=== PATIENT | male | born 1975 | race Caucasian/White ===

== ENCOUNTER 2024-04-02 12:48 | Emergency (ER) | payer OTHER, SELFPAY ==
[2024-04-02 12:55] VITALS: BP 117/75; PULSE 77; RESP 18; TEMP 36.3; O2SAT 99; BMI 21.6
--- NOTE | 2024-04-02 12:59 | DI.RAD.S_ITS ---
PROCEDURE: XR ELBOW RT MIN 3V INDICATIONS: Right elbow pain, wound TECHNIQUE: 3 views of the elbow were acquired. COMPARISON: None. FINDINGS: Bones: No fractures or dislocations. No suspicious bony lesions. Soft tissues: No elbow joint effusion. No suspicious soft tissue calcifications. IMPRESSION: No acute elbow fracture or dislocation. No significant joint effusion. Dictated by: Sherman Burnett M.D. on 04/02/2024 at 13:39 Approved by: Sherman Burnett M.D. on 04/02/2024 at 13:39
--- NOTE | 2024-04-02 14:06 | ED.UPPEXIN ---
HPI - Extremity Injury (Upper) <Isela Pollack PA-C - Last Filed: 04/02/24 14:27> General Chief Complaint: Extremity Injury, Upper Stated Complaint: fall/R elbow injury Time Seen by Provider: 04/02/24 13:16 Source: patient Mode of arrival: Ambulatory History of Present Illness HPI narrative: 48-year-old male presents to the ED with 2-3 weeks of right elbow pain. Patient states that he fell on ice 2-3 weeks ago, striking his right elbow. Patient states that he was feeling better, however over the last couple days, his right elbow has become swollen, tender to touch. No fever, chills. There is full range of motion. No numbness, tingling, weakness. Related Data Previous Rx's Medication Instructions Recorded sulfamethoxazole 800 2 tab PO Q12H 14 days #56 tabs 04/02/24 mg-trimethoprim 160 mg tablet (Bactrim DS) Allergies Allergy/AdvReac Type Severity Reaction Status Date / Time codeine AdvReac Vomiting Verified 04/02/24 12:55 Review of Systems <Isela Pollack PA-C - Last Filed: 04/02/24 14:27> Constitutional Constitutional: Denies chills, Denies fatigue, Denies fever(s), Denies frequent falls, Denies lethargy and Denies weakness Eyes Eyes: Denies change in vision, Denies eye discharge, Denies irritation and Denies loss of vision ENT Ears, Nose, Mouth, and Throat: Denies change in voice, Denies dizziness, Denies neck pain, Denies sore throat and Denies throat swelling Cardiovascular Cardiovascular: Denies chest pain, Denies irregular heart rhythm, Denies lightheadedness, Denies palpitations, Denies dyspnea, Denies dyspnea on exertion and Denies orthopnea Respiratory Respiratory: Denies cough, Denies dyspnea, Denies dyspnea on exertion and Denies wheezing Gastrointestinal Gastrointestinal: Denies abdominal pain, Denies change in bowel habits, Denies diarrhea, Denies nausea and Denies vomiting Musculoskeletal Musculoskeletal: Denies neck pain and Denies numbness Comments: Right elbow pain and swelling Integumentary/Breasts Skin/Breast: Denies pruritus, Denies erythema, Denies rash and Denies wounds Neurologic Neurologic: Denies behavioral changes, Denies confusion, Denies dizziness, Denies frequent falls, Denies loss of vision, Denies numbness and Denies weakness Psychiatric Psychiatric: Denies anxiety, Denies behavioral changes, Denies confusion, Denies depression, Denies homicidal ideation and Denies suicidal ideation Endocrine Endocrine: Denies fatigue, Denies flushing and Denies palpitations Hematologic/Lymphatic Hematologic/Lymphatic: Denies easy bruising Allergic/Immunologic Allergic/Immunologic: Denies urticaria, Denies throat swelling and Denies wheezing Patient History <Isela Pollack PA-C - Last Filed: 04/02/24 14:27> Social History Smoking Status: Current every day smoker Smoking Status: Current every day smoker Exam <Isela Pollack PA-C - Last Filed: 04/02/24 14:27> Narrative Exam Narrative: Const General:?cooperative, healthy appearing and comfortable HENTX Head:?normal to inspection Ears:?hearing grossly normal bilaterally Nose:?external nose normal Face and sinus:?normal facial exam and sinuses nontender Mouth:?oral mucosae normal Throat:?posterior oropharynx normal Eyes General:?appearance normal, both eyes and all related structures Neck Neck:?normal visual inspection and no lymphadenopathy noted Resp Effort & Inspection:?normal respiratory effort Auscultation:?clear to auscultation bilaterally Cardio Rate:?regular rate Rhythm:?regular rhythm Musculoskeletal There is swelling, tenderness to the right olecranon region. Colored tattoos make it difficult to gauge erythema. Slightly warm to touch. There is full range of motion. Patient is neurovascularly intact. Neuro General:?patient alert, patient awake and patient oriented x3 Initial Vital Signs Initial Vital Signs: Vital Signs Temperature 97.4 F L 04/02/24 12:55 Pulse Rate 77 04/02/24 12:55 Respiratory Rate 18 04/02/24 12:55 Blood Pressure 117/75 04/02/24 12:55 Pulse Oximetry 99 04/02/24 12:55 Oxygen Delivery Method Room Air 04/02/24 12:55 <Abby Salamanca DO - Last Filed: 04/03/24 19:13> Initial Vital Signs Initial Vital Signs: Vital Signs Temperature 97.4 F L 04/02/24 12:55 Pulse Rate 77 04/02/24 12:55 Respiratory Rate 18 04/02/24 12:55 Blood Pressure 117/75 02/24/25 12:55 Pulse Oximetry 99 04/02/24 12:55 Oxygen Delivery Method Room Air 04/02/24 12:55 Course <Isela Pollack PA-C - Last Filed: 04/02/24 14:27> Orders Ordered: ED Orders 04/02/24 12:59 XR elbow RT min 3V Stat Vital Signs Vital signs: Vital Signs - 8 hr 04/02/24 12:55 Temperature 97.4 F L Pulse Rate 77 Respiratory Rate 18 Blood Pressure 117/75 Pulse Oximetry 99 Oxygen Delivery Method Room Air <Abby Salamanca DO - Last Filed: 04/03/24 19:13> Orders Ordered: ED Orders 04/02/24 12:59 XR elbow RT min 3V Stat Vital Signs Vital signs: Vital Signs - 8 hr 04/02/24 12:55 Temperature 97.4 F L Pulse Rate 77 Respiratory Rate 18 Blood Pressure 117/75 Pulse Oximetry 99 Oxygen Delivery Method Room Air MDM - Extremity Injury (Upper) <Isela Pollack PA-C - Last Filed: 04/02/24 14:27> MDM Narrative Medical decision making narrative: 48-year-old male presents to the ED with 2-3 weeks of right elbow pain. X-ray shows no acute elbow fracture or dislocation. No significant joint effusion. Physical exam is consistent with olecranon bursitis. Given that patient has asleep of colored tattoos on his right arm, it is difficult to gauge erythema, so will cover with antibiotics. Recommend follow-up with PCP. Recommend taking ibuprofen. ED return precautions were discussed with patient. Patient verbalized understanding. Medical records reviewed: Yes Discharge Plan Departure Patient Disposition: Home Clinical Impression: Elbow injury Qualifiers: Encounter type: initial encounter Laterality: right Qualified Code(s): S59.901A - Unspecified injury of right elbow, initial encounter Instructions: DI for Elbow Bursitis Activity Restrictions/Additional Instructions: You were evaluated in the ED today for elbow pain. Your x-ray did not show any fractures or dislocations. It appears that you might have bursitis of the right elbow. You are being prescribed antibiotics in case of an infection. Please follow-up with your PCP as soon as possible. Return to the ED if you have worsening symptoms, numbness, tingling, weakness. Prescriptions: New sulfamethoxazole-trimethoprim [Bactrim DS] 800-160 mg tablet 2 tab PO Q12H 14 Days Qty: 56 0RF Referrals: Chicho Sanchez MD [Primary Care Provider] - Stand Alone Forms: Patient Portal/API/Survey ED Sign-out <Abby Salamanca DO - Last Filed: 04/03/24 19:13> Cosign ED Attending Romeo Attestation: I was immediately available in the department for consultation.
== END 2024-04-02 14:37 | disposition home or self-care (01) ==
PROVIDERS: Emergency Provider Student in an Organized Health Care Education/Training Program; PCP Family Medicine
DX: M70.21 Olecranon bursitis, right elbow (principal); S59.901A Unspecified injury of right elbow, initial encounter; W00.0XXA Fall on same level due to ice and snow, initial encounter; F17.210 Nicotine dependence, cigarettes, uncomplicated
CPT/HCPCS: 73080; 99281; 99283